=== PATIENT | male | born 1980 | race Caucasian/White ===

== ENCOUNTER 2019-01-15 09:33 | Day surgery (SDC) | payer OTHER ==
[~2019-01-15] VITALS: Ht 185.4 cm; Wt 99.5 kg
[2019-01-15 09:54] VITALS: BP 145/85
[2019-01-15] MEDS ORDERED: LACTATED RINGERS 1,000 ML IV SCH (09:55)
[2019-01-15] MEDS ORDERED: PLEASE ENTER HEIGHT AND WEIGHT MC SCH (10:00)
[2019-01-15] MEDS ORDERED: NO MEDICATIONS (10:23)
[2019-01-15] MEDS ORDERED: GABAPENTIN 300 MG CAPSULE PO ONE (10:30)
[2019-01-15] MEDS ORDERED: ACETAMINOPHEN 500 MG TABLET PO ONE (10:30)
[2019-01-15] MEDS ORDERED: OxyconTIN ER 10 MG TAB.ER PO ONE (10:30)
[2019-01-15] MEDS ORDERED: FENTANYL PF 100 MCG/2ML ONE (10:45)
[2019-01-15] MEDS ORDERED: MIDAZOLAM 1 MG/ML, 2ML ONE (10:45)
[2019-01-15] MEDS ORDERED: BUPIVACAINE/PF 0.5% ONE (11:18)
[2019-01-15] MEDS ORDERED: LIDOCAINE 1%, 20ML ONE (11:19)
[2019-01-15] MEDS ORDERED: ROCURONIUM 10 MG/ML,10ML ONE (12:02)
[2019-01-15] MEDS ORDERED: SUCCINYLCHOLINE 20 MG/ML, 10ML ONE (12:02)
[2019-01-15] MEDS ORDERED: KETOROLAC 30 MG/1 ML ONE (12:02)
[2019-01-15] MEDS ORDERED: VANCOMYCIN 1,000 MG ONE (12:20)
[2019-01-15] MEDS ORDERED: DEXAMETHASONE 4 MG/ML, 1ML ONE (12:23)
[2019-01-15] MEDS ORDERED: CEFAZOLIN 1,000 MG ONE (12:23)
[2019-01-15] MEDS ORDERED: PROPOFOL 10 MG/ML, 20ML ONE (12:23)
[2019-01-15] MEDS ORDERED: ONDANSETRON 2MG/ML, 2ML ONE (12:23)
[2019-01-15] MEDS ORDERED: PROMETHAZINE 25 MG/ML, 1ML IV PRN (12:30)
[2019-01-15] MEDS ORDERED: HYDROmorphone 2 MG/ML, 1ML IVPush PRN (12:30)
[2019-01-15] MEDS ORDERED: MIDAZOLAM 1 MG/ML, 2ML IV PRN (12:30)
[2019-01-15] MEDS ORDERED: ONDANSETRON 2MG/ML, 2ML IV PRN (12:30)
[2019-01-15] MEDS ORDERED: SCOPOLAMINE PATCH, 1.5MG PATCH.TD72 TD PRN (12:30)
[2019-01-15] MEDS ORDERED: MEPERIDINE/PF 25MG/0.5ML IVPush PRN (12:30)
[2019-01-15] MEDS ORDERED: FENTANYL PF 100 MCG/2ML IV PRN (12:30)
[2019-01-15] MEDS ORDERED: ALBUTEROL/IPRATROPIUM 2.5MG/0.5MG, 3 ML NPPB PRN (12:30)
[2019-01-15] MEDS ORDERED: OXYcodone 5 MG/5 ML ORAL.SOL UDC PO PRN (12:30)
== END 2019-01-15 15:00 | disposition home or self-care (01) ==
LOC: OUT 09:33
PROVIDERS: ATTEND Orthopaedic Surgery
DX: L02.611 Cutaneous abscess of right foot (principal); Z79.891 Long term (current) use of opiate analgesic; Z79.899 Other long term (current) drug therapy; Z98.890 Other specified postprocedural states; Z87.891 Personal history of nicotine dependence; Z72.89 Other problems related to lifestyle
CPT/HCPCS: 20240; 87070; 87075; 87077; 87176; 87186; 87205; J0330; J0690; J1100; J1885; J2250; J2405; J2704; J3010; J3370

== ENCOUNTER 2020-11-13 13:44 | Emergency (ER) | payer OTHER ==
[~2020-11-13] VITALS: Ht 185.4 cm; Wt 106.6 kg
[~2020-11-13 13:44] MED LIST: NO MEDICATIONS
[2020-11-13 13:50] VITALS: BP 180/115
[2020-11-13] MEDS ORDERED: HYDROmorphone 1 MG/ML, 1ML INJ ONE ×2 (14:05→15:17)
[2020-11-13] MEDS: HYDROmorphone 2 MG/ML, 1ML IM PRN ×2 (14:08→15:18)
--- NOTE | 2020-11-13 14:10 | NUR ---
EDP AT BESIDE TO REPLACE SHOULDER. AFTER SEVERAL MINUTES OF MANIPULATION THERE WAS A POP HEARD. R SHOULDER SEEMS TO EQUAL WITH LEFT. PT MEDICATED PER NOV. PT TOLERATED WELL. XRAY AT BEDSIDE.
[2020-11-13] MEDS ORDERED: LORazepam 2 MG/ML, 1ML ONE (14:11)
--- NOTE | 2020-11-13 14:17 | NUR ---
SARATH RN: DR FERRER WANTED ATIVAN HELD. 2 MG WASTED WITH FIDEL OROSCO RN. PT
--- NOTE | 2020-11-13 14:19 | NUR ---
SARATH RN: DR FERRER WANTED ATIVAN HELD. 2 MG OF ATIVAN WASTED WITH FIDEL Chong RN.
[2020-11-13] MEDS ORDERED: ONDANSETRON 2MG/ML, 2ML ONE (14:39)
--- NOTE | 2020-11-13 14:39 | NUR ---
SARATH RN: PT C/O NAUSEA. DR FERRER AWARE.
[2020-11-13] MEDS ORDERED: ONDANSETRON 2MG/ML, 2ML IVPush ONE (15:00)
== END 2020-11-13 15:47 | disposition home or self-care (01) ==
LOC: ED 14:53
DX: S43.034A Inferior dislocation of right humerus, initial encounter (principal); W19.XXXA Unspecified fall, initial encounter; Y93.89 Activity, other specified; Y92.89 Other specified places as the place of occurrence of the external cause; Y99.8 Other external cause status
CPT/HCPCS: 23650; 73020; 96372; 96374; 99284; J1170; J2405